=== PATIENT | female | born 1985 | race Two or more races ===

== ENCOUNTER 2023-11-08 11:27 | Inpatient (IN) ==
[2023-11-08] MEDS ORDERED: OXYTOCIN 30 UNITS/NSS 30 UNITS/500 ML BAG IV PRN ×2 (11:32→17:00)
[2023-11-08] MEDS ORDERED: LIDOCAINE 1% LOCAL 20 ML VIAL INFIL PRN (11:32)
[2023-11-08 11:55] LABS: Hematocrit (blood only) 36.3 % (37.0-47.0); Hemoglobin 11.6 g/dl (12.0-16.0); Mean Corpuscular Hemoglobin 29.7 pg (25.0-34.0); Mean Corpuscular Volume 93.1 fL (80.0-100.0); Mean Platelet Volume 11.7 fL (9.4-12.4); Platelet Count 190 K/uL (130-400); RDW Coefficient of Variation 12.2 % (11.5-14.5); RDW Standard Deviation 41.5 fL (36.4-46.3); White Blood Count 5.48 K/ul (4.8-10.8)
--- NOTE | 2023-11-08 12:22 | Labor Progress Brief Note ---
Date of Service November 08, 2023 Subjective Presents for IOL due to PD's, no OB c/o today. Assessment & Plan (1) Elderly multigravida, currently : Plan: Induction due to postdates in this multip. Pit recc'd as head not well applied yet for AROM. Pt accepts. Admission and Anticipated Discharge Date Admission Date: November 08, 2023 Physical Exam Genitourinary: /-2 ballottable head FHT Cat 1 [place] irregular / artifact Results & Data Vital Signs (Past 12 Hours) Vital Signs Temp Pulse Resp BP 11/08/23 11:50 98.4 F 82 20 114/67 Coding Level of Care Code None Diagnoses Elderly multigravida, currently O09.529
[2023-11-08] MEDS: LACTATED RINGER'S 1,000 ML IV PRN (12:26)
[2023-11-08] MEDS: OXYTOCIN 30 UNITS/NSS 30 UNITS/500 ML BAG IV PRN (12:27)
--- NOTE | 2023-11-08 16:50 | Delivery Summary ---
Vaginal Delivery Summary Date of Service November 08, 2023 Vaginal Delivery Summary DIAGNOSES: 1. Jimenez intrauterine at 40w3d gestation. 2. Induction of Labor. 3. Group B Streptococcus Neg. PROCEDURE: Spontaneous vaginal delivery without laceration. SURGEON: Arely Butler MD. GARBAGE TRUCK DISPATCHER: None. QUANTITATIVE BLOOD LOSS: 112 mL. COMPLICATIONS: None. PLACENTA: Spontaneous and intact with a 3-vessel cord. DISPOSITION: Stable to labor and delivery. DESCRIPTION: The patient pushed well and brought the head to in OA position. The infant's head was allowed to deliver with contraction force and no further active pushing, with the perineum protected during this time. There was one nuchal cord. The right shoulder was anterior. The shoulders and body delivered without any difficulty, and the infant was placed on the maternal abdomen. It was vigorous and moving all extremities, and making respiratory efforts. The cord was doubly clamped by the MD and then cut. The placenta delivered spontaneously and was noted to be intact and with a 3VC. The cervix, vagina and perineum were examined and were found to be without defect requiring repair. The fundus was firm and lochia minimal immediately after delivery. [facility] [place] Delivery Charge Vaginal Delivery Codes: 43712 global code for the antepartum, delivery, and post-
[2023-11-08] MEDS ORDERED: bisacodyL 10 MG SUPP PR PRN (17:00)
[2023-11-08] MEDS ORDERED: BENZOCAINE 20% SPRY 85 APPLN/85 GM CAN EXT PRN (17:00)
[2023-11-08] MEDS ORDERED: HYDROCORTISONE ACETATE 25 MG SUPP PR PRN (17:00)
[2023-11-08] MEDS ORDERED: oxyCODONE/ACETAMINOPHEN 5mg/325mg TAB PO PRN (17:00)
[2023-11-08] MEDS: DOCUSATE SODIUM 100 MG CAP PO SCH (22:03)
[2023-11-09] MEDS: IBUPROFEN 600 MG TAB PO PRN (01:10)
--- NOTE | 2023-11-09 05:53 | Obstetrical Progress Note ---
Date of Service <Fátima Reyes DO - Last Filed: 11/09/23 05:56> November 09, 2023 Assessment & Plan <Fátima Reyes DO - Last Filed: 11/09/23 05:56> (1) care following vaginal delivery: Plan Feels well today. Eating well, voiding well, ambulating well. Ok to continue to breastfeed. Pain well controlled with motrin. Routine care; OOB, ambulation, continue regular diet. Anticipate discharge 24-48 hrs after , today or tomorrow. After discharge will have 6 week follow-up with Dr. Butler. <Arely Butler MD - Last Filed: 11/09/23 07:18> (1) care following vaginal delivery: Subjective <Fátima Reyes DO - Last Filed: 11/09/23 05:56> Pt is a 38 y/o female who is PPD#1 following . Today, pt states she is feeling well. Cramps have been mild and bleeding is improving. She does note that she had some cracking and bleeding of her R nipple yesterday, and her L nipple just feels very sore. Otherwise, feeling well. Has tolerating intake and been ambulating since delivery. Would like to go home later today if possible since she has another child at home. Constitutional: no fever, no chills or no sweats Respiratory: no dyspnea Cardiovascular: no chest pain or no palpitations Breast: + see HPI Genitourinary (female): no dysuria Neurologic: no headache(s) no changes in vision, no headaches Physical Exam <Fátima Reyes DO - Last Filed: 11/09/23 05:56> General: Alert, oriented. No acute distress. Cardiac: Regular rate and rhythm, no murmurs, rubs, or gallops. Respiratory: Clear to auscultation bilaterally, no wheezes/rales/rhonchi. No increased work of breathing. Symmetrical chest rise. No respiratory distress. Abdomen: Soft, nontender, nondistended. Bowel sounds present. Uterus: Uterine fundus firm, palpable below the umbilicus. Lower extremities: No lower extremity edema or swelling. No deep calf pain. Results & Data <Fátima Reyes DO - Last Filed: 11/09/23 05:56> Vital Signs (Past 12 Hours) Vital Signs Temp Pulse Pulse Resp BP BP Pulse Ox 11/09/23 03:04 36.6 C 75 16 91/56 L 97 11/08/23 23:46 36.3 C L 74 18 124/73 98 11/08/23 20:45 36.4 C L 70 16 113/67 99 11/08/23 19:52 89 108/67 11/08/23 18:37 75 106/62 11/08/23 18:22 86 119/69 11/08/23 18:07 75 125/78 11/08/23 17:52 84 124/75 O2 Del Method 11/09/23 03:04 Room Air 11/08/23 23:46 Room Air 11/08/23 20:45 Room Air 11/08/23 19:52 11/08/23 18:37 11/08/23 18:22 11/08/23 18:07 11/08/23 17:52 Supervising Physician <Arely Butler MD - Last Filed: 11/09/23 07:18> Co-Signing Physician Notes Resident Physician Supervision Note: I interviewed and examined the patient. Agree with findings and plan as documented in the note by Dr. Reyes. Any exceptions or clarifications are listed here: [ ] Documented By: Arely Butler MD, FACOG Resident Activity Tracking <Fátima Reyes, - Last Filed: 11/09/23 05:56> Resident Involvement: Resident Care Provided Care Provided: Adult Hospital Medicine
[2023-11-09 07:19] LABS: Hematocrit (blood only) 32.9 % (37.0-47.0); Hemoglobin 10.9 g/dl (12.0-16.0); Mean Corpuscular Hemoglobin 30.2 pg (25.0-34.0); Mean Corpuscular Hgb Conc 33.1 g/dL (32.0-36.0); Mean Corpuscular Volume 91.1 fL (80.0-100.0); Mean Platelet Volume 11.7 fL (9.4-12.4); Platelet Count 184 K/uL (130-400); RDW Standard Deviation 40.6 fL (36.4-46.3); Red Blood Count 3.61 M/uL (4.20-5.40); White Blood Count 7.82 K/ul (4.8-10.8)
[2023-11-09] MEDS: PRENATAL VITAMIN 1 TAB PO SCH (08:22)
[2023-11-09] MEDS: DIPHTHER/TETAN/PERTUS Vaccine (Tdap, Adol/Adult) 0.5mL IM ONE (09:47)
[2023-11-09] MEDS: ACETAMINOPHEN 325 MG TAB PO PRN (10:58)
[2023-11-09] MEDS ORDERED: bisacodyL 5 MG TABEC PO SCH (20:00)
== END 2023-11-09 18:45 | disposition home or self-care (01) | DRG 807 ==
LOC: 4S1 11:27 → 4E2 20:45